=== PATIENT | female | born 1960 | race Caucasian/White ===

== ENCOUNTER → 2017-06-04 | Outpatient (CLI) | payer OTHER ==
[~2017-06-04] VITALS: Ht 165.1 cm; Wt 124.7 kg
[~2017-06-04] MED LIST: ALL DAY ALLERGY10 M3 PO; AZATHIOPRINE50 MG PO; CALCIUM 500 +1 EAC5 PO; HYDROCHLOROTH12.5 M2 PO; HYDROCODONE-AP1 EAC6 PO; IPRATROPIUM BRO15 ML NASAL; KLOR-CON 1010 MEQ PO; LISINOPRIL5 MG PO; LOPRESSOR50 PO; LOVASTATIN40 MG PO; NEURONTIN 300300 M1 PO; OXYCODONE-ACET1 EACH PO; PAROXETINE HCL20 MG PO; PREDNISONE 10 M10 MG PO; PULMICORT0.5 MG/22 INH; REMICADE 1100 MG/VIA IV; ROPINIROLE HCL0.5 MG PO; TIZANIDINE HCL 22 M1 PO; TRAMADOL 50 MG50 MG PO; VENTOLIN HFA 1818 GM INH; VITAMIN D3400 UNIT PO
--- NOTE | ~2017-06-04 | HPC ---
[facility] [address] [place] [address] PAIN MANAGEMENT CONSULTATION Name: CARMEN POLANCO Room #: REG PATRIZIA Mercado#: [id number] Admission: 06/04/17 Attend Phys: Guero Huston DO Discharge: Date of : 56 Report #: [id number] THIS REPORT FOR: //name// CC: HERO Huston The patient is a very pleasant 57-year-old female seen in consultation at the request of Dr. Fontanez for assistance with management of acute right L4 radicular pain. The patient has a long and stormy history of axial back and radicular pain. She had a decompressive laminectomy in 1992, complicated with a dural leak and subsequent arachnoiditis. She has had ongoing neurogenic claudication. Had a spinal cord stimulator implanted around 1994, (single quad lead, [employer]). Unfortunately, this caused some unpleasant stimulation and paresthesias. Ultimately, it was explanted around 1999. She has done well with chronic back and radicular pain, neuropathic pain with extremely low dose opiate. She has comorbidity of significant rheumatoid arthritis. 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 Uses tramadol p.r.n. The patient notes in mid April without specific trauma, but perhaps increased activity with babysitting her grandchildren she developed acute radicular pain, right buttock, lateral thigh, anterior campos with paresthesia going into the web of the first and second toe. She has subjective weakness in the right leg, numbness and paresthesia has noted in that right leg. Concerningly, she does have some peroneal loss of sensation (saddle anesthesia), which did start in August. Fortunately, she denies bowel or bladder insensate incontinence. She describes continuous, constant, burning pain, rates it at 5-10 on VAS. She was started on gabapentin, currently taking two 300 mg at bedtime with some improvement in symptoms. She did have a Medrol Dosepak (uses chronic prednisone for rheumatoid arthritis) again with nominal improvement in symptoms. She has been taking copious OTC nonsteroid anti-inflammatory drugs. This is concerning because I did note in her medical record, she does have compromised renal function with an EGFR noted to be somewhere between 30 and 59 (chronic kidney disease stage 3). I suggested she discontinue the anti-inflammatory agents and followup with her general practitioner to reevaluate her renal function. REVIEW OF SYSTEMS: Complete review of systems attached to chart, was gone over with the patient. She is . She does not smoke, drink alcohol to excess. History of hypertension, treated with metoprolol, lisinopril, and hydrochlorothiazide, pulmonary disease for which she uses albuterol inhaler, budesonide - formoterol inhaler, CPAP at bedtime. Dyslipidemia for which she uses lovastatin. Rheumatoid arthritis, gets Remicade infusion every 7 weeks, (last infusion was last week). She takes Imuran daily and prednisone 5 mg daily. Switch from hydrocodone 5/325 to Percocet 5/325, again uses this very [address] [address] PAIN MANAGEMENT CONSULTATION Name: CARMEN POLANCO Room #: REG PATRIZIA Mercado#: [id number] Admission: 06/04/17 Attend Phys: Guero Huston DO Discharge: Date of : 56 Report #: [id number] appropriately. Uses p.r.n. tramadol and tizanidine for pain, gabapentin as noted 300 mg 2 tablets at bedtime. Pain impact score is 37/70. PHYSICAL EXAMINATION: GENERAL: Reveals a 5 feet 5 inches, 275 pounds female, yielding elevated BMI of 45.8 kilograms per meter squared. Blood pressure 109/64, pulse is 70. Respirations are 16. Cranial nerves 2-12 are grossly intact. Pupils equal, reactive to light and accommodation. Extraocular muscles are intact. There is no nystagmus or lateral gaze deviation. Thyroid is unremarkable. She does have "melvin facies" (compatible with chronic steroid use). Upper extremity strength is symmetric at 4-5/5 to all muscle groups tested. HEART: Regular rhythmical without murmur. LUNGS: Clear to auscultation at this time. ABDOMEN: Shows an endomorphic build. EXTREMITIES: Rises from chair using armrest. Has a tandem gait. She is unable to walk on her right toe or heel. Lumbar flexion is limited to 80 degrees. Diffuse low back tenderness. Well-healed midline scar compatible with extensive lumbar surgical history and midline scar little higher compatible with insertion of a quad percutaneous electrode, now defunct spinal cord stimulator. Objectively lower extremity strength is diminished, right dorsiflexion and lower extremity extension strength is 2-3/5. Remainder of the right leg is 3-4/5, left leg is much more robust at 4-5/5 to all objective muscle testing. Patellar reflexes are absent on the right, 1/4 in the left. Achilles reflexes are absent bilaterally. Positive straight leg raise on the right. Skin integument is overall intact. DIAGNOSTIC STUDIES: From August 2016, the patient was started to develop some peroneal numbness, CT myelogram notes some disk bulges at T4-5 and T5-6. This indented the thecal sac, but the canals are otherwise patent. L4-L5 and L5-S1 notes postoperative changes. There is significant clubbing of the nerves posteriorly compatible with prior arachnoiditis. 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 RECOMMENDATION: 1. I have discussed with the patient today, we would like to move forward with right L4-L5 transforaminal epidural injection today. Suggest increase gabapentin from 600 mg at bedtime to 900 mg total daily dose (one 300 mg tablet in the morning and 2 at night). If this causes untoward sedation, consider 3 at bedtime[address] [address] PAIN MANAGEMENT CONSULTATION Name: CARMEN POLANCO Room #: REG PATRIZIA Mercado#: [id number] Admission: 06/04/17 Attend Phys: Guero Huston DO Discharge: Date of : 56 Report #: [id number] 2. Continue very appropriate use of p.r.n. oxycodone 5 mg. 3. Again, suggest patient slow down her use of [id number]-xbphnab NSAID, and followup with Dr. Fontanez to reevaluate renal function. Thank you for allowing me to participate in the patient's care. We will keep you abreast of her progress, we talked today about possible therapeutic options moving forward, modality is include consideration for increasing the calcium channel membrane stabilizing agent (gabapentin) up to 1800 mg or so, consider addition of a sodium channel membrane stabilizing agent (Trileptal?). May even consider revisiting spinal cord stimulator as a possible therapeutic option, the newer stimulator have high frequency stimulation which should avoid the unpleasant paresthesia patient had prior. ASSESSMENT: Symptomatic lumbar radiculopathy status post decompressive laminectomy. PROCEDURE: Right L4-L5 transforaminal epidural injection under fluoroscopy. PROCEDURE NOTE: After both written and informed consent was obtained including risk of spinal cord damage, infection, increased pain and paralysis, the patient agreed to proceed. The patient was taken to the fluoroscopy suite, placed in a prone position with appropriate abdominal bolstering. After sterile prep with ChloraPrep and sterile drape, a skin wheal with 1% Xylocaine was raised. A 22 gauge 4-1/2 inch epidural Tuohy needle was inserted. From an oblique approach into the posterior-superior aspect of the right L4-L5 neural foramen with continuous pressure on the glass syringe plunger for loss of resistance. Glass syringe was filled with 2 cc of 0.1 Xylocaine. The glass loss of resistance syringe was removed. A low volume extension tubing was connected, negative aspiration was accomplished for cerebrospinal fluid or blood. 1 mL of Omnipaque was injected which showed spread both within the epidural space and laterally along the nerve root. This was followed with 80 mg of triamcinolone plus 1 mL of 1.5% preservative-free Xylocaine. Needle was partially withdrawn, 0.5 mL of Xylocaine was injected to clear the needle and the needle was removed. The area was cleansed, band-aid was applied. The patient was allowed to ambulate to the recovery room, discharged in good and stable condition. <ELECTRONICALLY SIGNED> By: Guero Huston DO 06/07/17 0908 [id number] Guero Huston DO /nt
[2017-06-04 08:29] VITALS: BP 109/64
== END | disposition home or self-care (01) ==
LOC: PAIN 07:12
DX: M54.16 Radiculopathy, lumbar region (principal); Z98.890 Other specified postprocedural states; G62.9 Polyneuropathy, unspecified; M06.9 Rheumatoid arthritis, unspecified; E66.9 Obesity, unspecified; Z68.42 Body mass index [BMI] 45.0-49.9, adult

== ENCOUNTER → 2017-06-24 | Outpatient (CLI) | payer OTHER ==
[~2017-06-24] VITALS: Ht 165.1 cm; Wt 124.6 kg
--- NOTE | ~2017-06-24 | HPC ---
[facility] [address] [place] [address] PAIN MANAGEMENT CONSULTATION Name: CARMEN POLANCO Room #: REG PATRIZIA Mercado#: [id number] Admission: 06/24/17 Attend Phys: Guero Huston DO Discharge: Date of : 56 Report #: [id number] THIS REPORT FOR: //name// CC: HERO Huston The patient is a 57-year-old female, prior seen on 06/04/2017, diagnosed with symptomatic lumbar radiculopathy. She is status post lumbar decompressive laminectomy. We had proceeded with a right L4-L5 transforaminal epidural injection at that time. She returns to pain clinic today noting symptoms were significantly improved to 95%, but they have returned. She has ongoing pain, which remains problematic. She rates the pain 2-3 on a VAS, constant, burning sensation down the lateral aspect of the right leg. The patient had prior had a significant decompressive laminectomy at L4 and L5 in 1989. Had implantation of spinal cord stimulator in [facility] in 1994. They revised the IPG in 2009. Unfortunately, they were unable to remove the single quad lead. They were planning on placing dual-octad leads. They simply left the single quad lead and replaced the IPG, it ultimately . She had the IPG removed, which had bladder surgery several years ago (the generator had prior 6 functioning years prior). With ongoing radicular symptoms and the patient has positive straight leg raise on the right and modestly antalgic gait and a slight decreased right leg strength, we elected to repeat a right L4-L5 transforaminal epidural injection today. If this does not afford adequate relief, I did write for a CT myelogram of the lumbar spine. If symptoms continue to be problematic and no significant relief with the second injection, we will get the CT myelogram, review this and possibly refer the patient back for revision surgery. If, however, she gets good incremental relief with this injection, we will have her postpone the CT myelogram. I will see the patient in about 3 weeks for followup. ASSESSMENT: Symptomatic lumbar radiculopathy status post decompressive laminectomy. PROCEDURE: Right L4-L5 transforaminal epidural injection under fluoroscopy. PROCEDURE NOTE: After both written and informed consent was obtained including risk of spinal cord damage, infection, increased pain and paralysis, the patient agreed to proceed. The patient was taken to the fluoroscopy suite, placed in a prone position with appropriate abdominal bolstering. After sterile prep with ChloraPrep and sterile drape, a skin wheal with 1% Xylocaine was raised. A 22 gauge 4-1/2 inch epidural Tuohy needle was inserted. From an oblique approach into the posterior-superior aspect of the right L4-L5 neural foramen with continuous pressure on the glass syringe plunger for loss of resistance. Glass syringe was filled with 2 cc of 0.1 Xylocaine. The glass loss of resistance syringe was removed. A low volume extension tubing was connected, negative [facility] [address] [place] [address] PAIN MANAGEMENT CONSULTATION Name: CARMEN POLANCO Room #: REG PATRIZIA Mercado#: [id number] Admission: 06/24/17 Attend Phys: Guero Huston DO Discharge: Date of : 56 Report #: [id number] aspiration was accomplished for cerebrospinal fluid or blood. 1 mL of Omnipaque was injected which showed spread both within the epidural space and laterally along the nerve root. This was followed with 80 mg of triamcinolone plus 1 mL of 1.5% preservative-free Xylocaine. Needle was partially withdrawn, 0.5 mL of Xylocaine was injected to clear the needle and the needle was removed. The area was cleansed, band-aid was applied. The patient was allowed to ambulate to the recovery room, discharged in good and stable condition. By: [id number] [id number] Guero Huston DO /nt
[2017-06-24 11:04] VITALS: BP 151/79
== END | disposition home or self-care (01) ==
LOC: PAIN 07:26
DX: M54.16 Radiculopathy, lumbar region (principal); Z98.890 Other specified postprocedural states

== ENCOUNTER → 2017-07-28 | Outpatient (CLI) | payer OTHER ==
[~2017-07-28] MED LIST changes: +CEFDINIR300 MG PO
== END ==
LOC: RAD 07-13 09:49
DX: M54.16 Radiculopathy, lumbar region (principal)

== ENCOUNTER → 2017-07-30 | Outpatient (CLI) | payer OTHER ==
[~2017-07-30] VITALS: Ht 165.1 cm; Wt 127.8 kg
--- NOTE | ~2017-07-30 | HPC ---
[facility] [place] [address] PAIN MANAGEMENT CONSULTATION Name: CARMEN POLANCO [facility] [id number] Admission: 07/30/17 Attend Phys: Guero Huston DO Discharge: Date of : 56 Report #: [id number] THIS REPORT FOR: //name// CC: TEAGAN Huston The patient is a pleasant 57-year-old female seen in followup. She was seen for a prolonged visit today from 10:52-11:20, greater than 50% of this 25+ minute visit was spent counseling the patient. She was seen in the pain clinic 06/24/2017, given a second right L4-L5 transforaminal epidural injection. Returns to pain clinic today noting the injections have afforded good relief, up to 90% for only short term, 5 days with the last injection. She notes pain is ongoing in the low back, right buttock and leg, lateral aspect, somewhat of an L4 distribution. She is developing some right anterior tibialis weakness. The patient had had prior back surgery in 1989, complicated with a dural leak. She had a spinal cord stimulator in place for a number of years, ultimately was explanted in 2009 and unfortunately, they were unable to remove the lead, which remains in place. Given presence of the spinal cord stimulator lead, she cannot get an MRI. I did order a CT myelogram of the lumbar spine, which was accomplished 07/28/2017. I reviewed the findings with the patient today. Overall impression notes surgical changes of multilevel decompressive laminectomy at L4-L5 and L5-S1, thecal sac becomes irregular and occluded at the level of L4-L5, there is no filling of the thecal sac at L5-S1. 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 CT myelogram of the upper lumbar spine is normal. The patient continues to take gabapentin, a very low dose, titrated 100 mg tablets up to 300 mg at bedtime. This is through Dr. Teagan Fontanez at [place], [place]. The patient still noted pain is a 6 on VAS, sharp, numb and tingling sensation with some increasing weakness in the right anterior tibialis. Pain is exacerbated with walking and standing. PHYSICAL EXAMINATION: Shows a 57-year-old female, BMI is elevated at 46.9 kg/m2. Blood pressure 134/76, pulse 81, and respirations 16. Rises from chair using armrest. She has moderately antalgic gait, again weakness is noted in the right dorsiflexion and lower extremity extension. Straight leg raise is negative. Patellar reflex is modestly diminished on the right. Achilles [place] [address] PAIN MANAGEMENT CONSULTATION Name: COLLINCARMEN DIANE Room #: REG PATRIZIA Mercado#: [id number] Admission: 07/30/17 Attend Phys: Guero Huston DO Discharge: Date of : 56 Report #: [id number] The patient has a history of rheumatoid arthritis. She does have a classic "melvin" facies, does take prednisone 10 mg daily for the RA. About 3 months ago, she was rotated from hydrocodone to Percocet 5/325 for pain, takes this about 4 a day for multi-joint issues. Again, takes azathioprine, tizanidine, tramadol, and the aforementioned gabapentin and uses Remicade as well for RA. Comorbidities include hypertension and reactive airway disease for which she uses metered dose inhaler. ASSESSMENT: Symptomatic lumbar radiculopathy, status post decompressive laminectomy, neuropathic pain component secondary to arachnoiditis. RECOMMENDATION: Long discussion with the patient today about therapeutic option. Suggest she gradually titrate gabapentin up to a more therapeutic level, anywhere from 1500 mg. I have taken the liberty of writing for a single prescription for gabapentin 300 mg, dispense 90 tablets. We will have her start taking 2 tablets at bedtime for 5-7 days and then titrate up to 1 in the morning and 2 at night. I will defer to Dr. Fontanez for ongoing management of this agent. If she gets good relief, but still has ongoing pain, may consider addition of a sodium channel membrane stabilizing agent (given gabapentin is a calcium channel membrane stabilizing agent, there may be some synergy at moderate doses of these 2 lesions). I would suggest Trileptal 150 mg at bedtime, titrating up to similar dosing to the gabapentin, 1 in the morning and 2 at night. I have also taken the liberty of referring the patient to neurosurgery for evaluation and consideration if there is any further surgical options indicated, though I did not see any obvious surgical pathology, I will certainly defer to the back specialist. She was given contact information for Dr. Jorge Posada and/or Dr. Ad Oseguera. I will be happy to see the patient on an as needed basis. No followup appointments were made. Discharged in good and stable condition after a prolonged visit. By: 1205 1406 Guero Huston, /nt
[2017-07-30 10:46] VITALS: BP 134/76
== END | disposition home or self-care (01) ==
LOC: PAIN
DX: M54.16 Radiculopathy, lumbar region (principal); Z98.890 Other specified postprocedural states; Z79.899 Other long term (current) drug therapy; Z68.42 Body mass index [BMI] 45.0-49.9, adult; M06.9 Rheumatoid arthritis, unspecified

== ENCOUNTER → 2017-12-23 | Outpatient (CLI) | payer OTHER ==
[~2017-12-23] VITALS: Ht 165.1 cm; Wt 120.7 kg
[~2017-12-23] MED LIST changes: +TRILEPTAL150 MG PO
--- NOTE | ~2017-12-23 | HPC ---
[facility] [address] [place] [address] PAIN MANAGEMENT CONSULTATION Name: CARMEN POLANCO Room #: REG [facility] Jess#: [id number] Admission: 12/23/17 Attend Phys: Guero Huston DO Discharge: Date of : 56 Report #: [id number] THIS REPORT FOR: //name// CC: HERO Huston The patient is a 57-year-old female, prior treated 07/30/2017. The patient has a spinal cord stimulator, she is status post decompressive laminectomy, has ongoing neuropathic pain, currently taking gabapentin. She was doing reasonably well until a few weeks ago. She fell out of bed while she was asleep, she got somewhat twisted up in the bed sheets, she struck her right low back SI area and has had ongoing pain since. PHYSICAL EXAMINATION: Shows positive Beckie test on the right. Tenderness over the right SI with some point tenderness over the right trochanteric bursa as well. Positive Gaenslen's test. Positive pelvic distraction. ASSESSMENT: 1. Symptomatic right sacroiliac mediated pain, component of right trochanteric bursitis in a patient status post lumbar decompressive laminectomy, history of arachnoiditis, neuropathic pain. 2. Symptomatic right sacroiliac joint dysfunction by clinical exam and history. RECOMMENDATIONS: 1. Right SI joint injection under fluoroscopy today. 2. Follow up in one week for reevaluation, consideration for a right trochanteric bursa if indicated at that time. 3. Follow up simply as needed. The patient is planning on moving forward with right total knee arthroplasty late next month. PROCEDURE: Right SI joint injection under fluoroscopy. PROCEDURE NOTE: After written informed consent was obtained, the patient was taken to the fluoroscopy suite and placed in prone position. After sterile prep and drape, skin wheal was raised. A 22-gauge stylet needle was placed to contact the inferior aspect of the right SI joint. Negative aspiration was accomplished. 1 mL of Omnipaque was injected, which showed spread in the joints, this followed with 40 mg of triamcinolone plus 1 mL of 0.5% preservative-free bupivacaine. Needle was removed, the area was cleansed, Band-Aids applied. The patient was monitored for an appropriate period of time, discharged in good and stable condition. Fluoroscopy time was under 15 seconds. <ELECTRONICALLY SIGNED> By: Guero Huston DO 12/24/17 0727 [id number] Guero Huston DO /nt
[2017-12-23 13:05] VITALS: BP 112/64
== END ==
LOC: PAIN 07:29
DX: M53.3 Sacrococcygeal disorders, not elsewhere classified (principal); M96.1 Postlaminectomy syndrome, not elsewhere classified; M70.61 Trochanteric bursitis, right hip; Z98.890 Other specified postprocedural states